=== PATIENT | female | born 1975 | race Hispanic/Latino ===

== ENCOUNTER 2023-09-28 18:51 | Emergency (ER) | payer BC, MEDICARE, SELFPAY ==
[2023-09-28] MEDS ORDERED: Proparacaine 0.5% Opth 15 ML BOT ONE (19:14)
[2023-09-28] MEDS ORDERED: Fluorescein Opthalmic Strip ONE (19:14)
== END 2023-09-28 19:57 | disposition home or self-care (01) ==
LOC: CSHERS 18:51
DX: S05.02XA Injury of conjunctiva and corneal abrasion without foreign body, left eye, initial encounter (principal); Z87.891 Personal history of nicotine dependence; X58.XXXA Exposure to other specified factors, initial encounter
CPT/HCPCS: 65222; 99283